=== PATIENT | male | born 1975 | race Caucasian/White ===

== ENCOUNTER 2017-03-24 18:01 | Emergency (ER) ==
[2017-03-24 18:18] VITALS: BP 114/70; TEMP 97.9; BMI 17.9
--- NOTE | 2017-03-24 18:29 | ED.PDOC ---
General ED Provider: Dr. MANDO JONES JR Chief Complaint: Shoulder Pain/Injury Stated Complaint: TWO WEEKS AGO AWOKE RIGHT SHOULDER HURTING. NOT RECALL TIME OF INJURY STATES PAIN HAS WORSENED OVER TIME. CAN LIFT ARM ABOVE HEAD, DIFFICULTY BRINGING ARM DOWN SHOULDER JOINT TENDER 97.9 68 15 97% 114/70 8/10 Time Seen by Physician: 18:27 Mode of Arrival: Walk-In Information Source: Patient Exam Limitations: No limitations Nursing and Triage Documentation Reviewed and Agree: No Review of Systems - Review Of Systems Constitutional: Reports: No symptoms Eyes: Reports: No symptoms Ears, Nose, Mouth, Throat: Reports: No symptoms Respiratory: Reports: No symptoms Cardiac: Reports: No symptoms GI: Reports: No symptoms : Reports: No symptoms Musculoskeletal: Reports: Muscle pain Skin: Reports: No symptoms Neurological: Reports: No symptoms Endocrine: Reports: No symptoms Hematologic/Lymphatic: Reports: No symptoms All Other Systems: Other Past Medical History - Past Medical History Previously Healthy: Yes Endocrine: Reports: None Cardiovascular: Reports: None Respiratory: Reports: None Hematological: Reports: None Gastrointestinal: Reports: None Genitourinary: Reports: Kidney stones ([employer] KIDNEY STONE 2011) Neuro/Psych: Reports: None Musculoskeletal: Reports: None Cancer: Reports: None - Surgical History General Surgical History: Reports: Hernia Repair (HERNIA REPAIR AT AGE 12), Other (REATTACHMENT OF THUMB 2007) - Family History Family History: Reports: Unknown - Social History Smoking Status: Current every day smoker, Heavy tobacco smoker Hx Substance Use: No Alcohol Screening: Occasionally - Immunizations Tetanus Shot up to Date: No Physical Exam - Physical Exam Appearance: Well-appearing, Thin Musculoskeletal: Normal strength, ROM intact, No edema, No calf tenderness ( tender at middle of deltoid origin- deltoid heart shaperd-symmetric no left sided tenderness) Skin: Warm, Dry, Normal color Neurological: Sensation intact, Motor intact, Reflexes intact, Cranial nerves intact, Alert, Oriented Psychiatric: Affect appropriate, Mood appropriate Interpretation - Radiology Interpretation Radiology Interpretation By: ED Physician Radiology Results: Negative Exam Interpreted: Other (negative shoulder) Critical Care Note - Critical Care Note Total Time (mins): 0 Course - Course Orders, Labs, Meds: Orders Category Date Time Status SHOULDER, RIGHT MIN 2V Stat RADS 03/24/17 18:28 Taken Vital Signs: Temp Pulse Resp BP Pulse Ox 03/24/17 18:03 97.9 F 68 15 114/70 97 Departure - Departure Time of Disposition: 19:03 Disposition: HOME SELF-CARE Discharge Problem: Injury of shoulder region Instructions: Shoulder Sprain (ED) Condition: Good Pt referred to PMD for follow-up: Yes Additional Instructions: Tylenol or Naprosyn for pain may take Tylenol and Naprosyn together do not take Naprosyn with NSAIDS ICE 20 minutes three times a day for swelling limit lifting to 30 pounds for three days recheck PMD one week consider orthopedic referral for shoulder symptoms Prescriptions: Naproxen [Naprosyn] 500 mg PO Q12HR PRN #30 tablet PRN Reason: PAIN Allergies/Adverse Reactions: Allergies No Known Allergies Allergy (Unverified 03/24/17 18:09) Home Medications: Ambulatory Orders Naproxen [Naprosyn] 500 mg PO Q12HR PRN #30 tablet 03/24/17
--- NOTE | 2017-03-25 07:25 | DI ---
Exam: Three x-rays of the right shoulder. Comparison: None available. Reason for exam: Pain in mid deltoid region. FINDINGS: No acute fracture or malalignment. The humeral head articulates to the bony glenoid. Th e acromioclavicular joint spaces well maintained. The clavicle is intact. Impression: No acute fracture or dislocation in the right shoulder
== END 2017-03-24 19:17 | disposition home or self-care (01) ==
LOC: ED 18:01
DX: M25.511 Pain in right shoulder (principal); F17.210 Nicotine dependence, cigarettes, uncomplicated
CPT/HCPCS: 99282

== ENCOUNTER 2017-04-01 14:58 | Outpatient (CLI) ==
--- NOTE | 2017-04-01 17:23 | MRI ---
EXAM: MRI of the right shoulder without contrast COMPARISON: Right shoulder radiographs 03/24/2017. HISTORY: Right shoulder pain. No known injury. TECHNIQUE: Multiplanar noncontrast MR images of the right shoulder were acquired using a 1.2 Dory magnet. The submitted images are mildly limited by patient motion artifact. FINDINGS: There is mild supraspinatus and subscapularis with minimal infraspinatus tendinosis. No evidence of a partial or full-thickness rotator cuff tear. No significant fluid in the subacromial/ subdeltoid bursa. Limited assessment of the glenoid labrum on this non arthrographic study. The glenoid labrum is jose ssly unremarkable. No paralabral cyst. The glenohumeral joint space is preserved without evidence of an acute fracture dislocation. Physiologic amount of fluid within the joint. The long head of the biceps is located within the bicipital groove with mild tendinosis. Mild hypertrophic degenerative changes of the acromioclavicular joint with capsular hypertrophy. Sm all marginal osteophytes. Minimal lateral downsloping of the acromion. No evidence of an os acromi cynthia or abnormal widening of the acromioclavicular joint space. No soft tissue mass identified. IMPRESSION: 1. Mild rotator cuff tendinosis without evidence of a partial or full-thickness rotator cuff tear. 2. Mild hypertrophic degenerative changes of the acromioclavicular joint with mild lateral downslop ing of the acromion representing potential sources of subacromial impingement. 3. No acute osseous abnormality. 4. Mild long head biceps tendinosis.
== END 2017-04-01 14:59 | disposition home or self-care (01) ==
LOC: RAD 14:58
PROVIDERS: ATTEND Emergency Medicine
DX: M25.511 Pain in right shoulder (principal)

== ENCOUNTER 2017-05-26 12:01 | Emergency (ER) ==
[2017-05-26 12:10] VITALS: BP 125/80; TEMP 96.9; BMI 18.6
--- NOTE | 2017-05-26 12:20 | ED.PDOC ---
General ED Provider: Dr. VIRAL CARPENTER Chief Complaint: Back Pain Stated Complaint: back pain Time Seen by Physician: 12:10 (chronic pain no injury) Mode of Arrival: Walk-In Information Source: Patient Exam Limitations: No limitations [facility] Nursing and Triage Documentation Reviewed and Agree: Yes (seen at all times with yolanda ) Musculoskeletal Complaint Exam - Back Pain Complaint/Exam Mechanism of Injury: Reports: No known trauma Onset/Duration: chronic Timing: Intermittent Episodes Lasting: Weeks Initial Severity: Moderate Current Severity: Mild Character: Reports: Aching Aggravating: Reports: Movements, Lifting, Bending, Walking Alleviating: Reports: Rest, Position Associated Signs and Symptoms: Denies: Swelling, Redness, Bruising, Fever, Weakness, Numbness, Tingling, Abdominal pain, Flank pain, Bladder incontinence, Bowel incontinence, Weight loss, Pain with weight bearing Related History: Reports: Similar episode TAD Risk Factors: Reports: None AAA Risk Factors: Reports: None Cauda Equina Risk Factors: Reports: None Epidural Abcess Risk Factors: Reports: None Related Surgical History: Reports: None Focal Tenderness: No Paraspinal Muscle Tenderness: No Paraspinal Muscle Spasm: No Scoliosis: No Lordosis: No Kyphosis: No SLR Test: Right Negative, Left Negative Hip Motion Testing Pain: Right Negative, Left Negative Focal Weakness: Present: None Focal Sensory Loss: Present: None Gait: Present: Normal Differential Diagnoses: Strain, Sprain Review of Systems - Review Of Systems Constitutional: Reports: No symptoms Eyes: Reports: No symptoms Ears, Nose, Mouth, Throat: Reports: No symptoms Respiratory: Reports: No symptoms Cardiac: Reports: No symptoms GI: Reports: No symptoms : Reports: No symptoms Musculoskeletal: Reports: Back pain Skin: Reports: No symptoms Neurological: Reports: No symptoms Endocrine: Reports: No symptoms Hematologic/Lymphatic: Reports: No symptoms All Other Systems: Reviewed and Negative Past Medical History - Past Medical History Previously Healthy: Yes Endocrine: Reports: None Cardiovascular: Reports: None Respiratory: Reports: None Hematological: Reports: None Gastrointestinal: Reports: None Genitourinary: Reports: Kidney stones ([employer] KIDNEY STONE 2011) Neuro/Psych: Reports: None Musculoskeletal: Reports: None Cancer: Reports: None - Surgical History General Surgical History: Reports: Hernia Repair (HERNIA REPAIR AT AGE 12), Other (REATTACHMENT OF THUMB 2007) - Family History Family History: Reports: Unknown - Social History Smoking Status: Current every day smoker, Heavy tobacco smoker Hx Substance Use: No Alcohol Screening: Occasionally Physical Exam - Physical Exam Appearance: Well-appearing, No pain distress, Well-nourished Eyes: PRINCESS, EOMI, Conjunctiva clear ENT: Ears normal, Nose normal, Oropharynx normal Respiratory: Airway patent, Breath sounds clear, Breath sounds equal, Respirations nonlabored Cardiovascular: RRR, Pulses normal, No rub, No murmur GI/: Soft, Nontender, No masses, Bowel sounds normal, No Organomegaly Musculoskeletal: Normal strength, ROM intact, No edema, No calf tenderness Skin: Warm, Dry, Normal color Neurological: Sensation intact, Motor intact, Reflexes intact, Cranial nerves intact, Alert, Oriented Psychiatric: Affect appropriate, Mood appropriate Critical Care Note - Critical Care Note Total Time (mins): 0 Course - Course Vital Signs: Temp Pulse Resp BP Pulse Ox 05/26/17 12:06 96.9 F L 56 L 20 125/80 99 Departure - Departure Time of Disposition: 12:20 (both nurse named were present during entire visit ) Disposition: HOME SELF-CARE Discharge Problem: Low back pain Qualifiers: Chronicity: unspecified Back pain laterality: unspecified Sciatica presence: without sciatica Qualified Code(s): M54.5 - Low back pain Instructions: Acute Low Back Pain (ED) Condition: Good Pt referred to PMD for follow-up: Yes Additional Instructions: Please call your Family Physician as soon as possible to schedule a follow-up appointment. Prescriptions: Nabumetone [Relafen] 750 mg PO BIDWM 4 Days #8 tablet Allergies/Adverse Reactions: Allergies No Known Allergies Allergy (Verified 05/26/17 12:10) Home Medications: Ambulatory Orders Nabumetone [Relafen] 750 mg PO BIDWM 4 Days #8 tablet 05/26/17
== END 2017-05-26 12:29 | disposition home or self-care (01) ==
LOC: ED 12:01
DX: M54.5 Low back pain (principal); G89.29 Other chronic pain; F17.210 Nicotine dependence, cigarettes, uncomplicated
CPT/HCPCS: 99283

== ENCOUNTER 2017-12-08 17:03 | Emergency (ER) ==
[2017-12-08 17:06] VITALS: BP 123/82; TEMP 98.4; BMI 20.5
--- NOTE | 2017-12-08 18:36 | ED.PDOC ---
General ED Provider: Dr. KRISTINE MERLOS-ER Chief Complaint: Shoulder Pain/Injury Stated Complaint: something popped in my shoulder a few days ago at work when i pulled on a cart Time Seen by Physician: 18:34 Mode of Arrival: Walk-In Information Source: Patient Exam Limitations: No limitations Nursing and Triage Documentation Reviewed and Agree: Yes Reviewed sepsis parameters & appropriate labs ordered?: Yes System Inflammatory Response Syndrome: Not Applicable Sepsis Protocol: For patient's 13 years and over: Temp is 96.8 and below OR 101 and greater Pulse >90 BPM Resp >20/minute Acutely Altered Mental Status Are patient's symptoms suggestive of a new infection, such as: -Pneumonia -Skin, Soft Tissue -Endocarditis -UTI -Bone, Joint Infection -Implantable Device -Acute Abdominal Infection -Wound Infection -Meningitis -Blood Stream Catheter Infection -Unknown Musculoskeletal Complaint Exam - Shoulder Pain Complaint/Exam Mechanism of Injury: Reports: Trauma Onset/Duration: several days ago Symptoms Are: Still present Timing: Constant Initial Severity: Mild Current Severity: Moderate Location: Reports: Discrete Character: Reports: Dull, Aching, Throbbing, Spasmodic Alleviating: Reports: None Aggravating: Reports: Movement, Lifting, Flexion, Extension, Internal rotation, External rotation, Abduction Associated Signs and Symptoms: Denies: Swelling, Redness, Bruising, Fever, Weakness, Numbness, Tingling Limited Range of Motion: Present: Rotator cuff muscles Differential Diagnoses: Rotator Cuff Injury, Sprain, Strain Review of Systems - Review Of Systems Constitutional: Reports: No symptoms Eyes: Reports: No symptoms Ears, Nose, Mouth, Throat: Reports: No symptoms Respiratory: Reports: No symptoms Cardiac: Reports: No symptoms GI: Reports: No symptoms : Reports: No symptoms Musculoskeletal: Reports: Joint pain, Muscle pain Skin: Reports: No symptoms Neurological: Reports: No symptoms Endocrine: Reports: No symptoms Hematologic/Lymphatic: Reports: No symptoms All Other Systems: Reviewed and Negative Past Medical History - Past Medical History Previously Healthy: Yes Endocrine: Reports: None Cardiovascular: Reports: None Respiratory: Reports: None Hematological: Reports: None Gastrointestinal: Reports: None Genitourinary: Reports: Kidney stones ([employer] KIDNEY STONE 2011) Neuro/Psych: Reports: None Musculoskeletal: Reports: None Cancer: Reports: None - Surgical History General Surgical History: Reports: Hernia Repair (HERNIA REPAIR AT AGE 12), Other (REATTACHMENT OF THUMB 2007) - Family History Family History: Reports: Unknown - Social History Smoking Status: Current every day smoker, Heavy tobacco smoker Hx Substance Use: No Alcohol Screening: Occasionally - Immunizations Tetanus Shot up to Date: No Physical Exam - Physical Exam Appearance: Well-appearing, No pain distress, Well-nourished Pain Distress: Moderate Eyes: PRINCESS, EOMI, Conjunctiva clear ENT: Ears normal, Nose normal, Oropharynx normal Neck: Supple Respiratory: Airway patent Cardiovascular: RRR, Pulses normal, No rub, No murmur GI/: Soft Musculoskeletal: Limited ROM Skin: Warm Neurological: Sensation intact Psychiatric: Affect appropriate, Mood appropriate Interpretation - Radiology Interpretation Radiology Interpretation By: ED Physician Radiology Results: Negative Critical Care Note - Critical Care Note Total Time (mins): 0 Course - Course Orders, Labs, Meds: Orders Category Date Time Status SHOULDER, RIGHT MIN 2V Stat RADS 12/08/17 18:30 Ordered Vital Signs: Temp Pulse Resp BP Pulse Ox 12/08/17 17:03 98.4 F 77 18 123/82 98 Departure - Departure Time of Disposition: 18:39 Disposition: HOME SELF-CARE Discharge Problem: Injury of shoulder region Instructions: Rotator Cuff Injury (ED) Condition: Good Pt referred to PMD for follow-up: Yes IPMP verified?: No Additional Instructions: norco 5mg q 4hrs prn pain #12--f/u wtih pcp Allergies/Adverse Reactions: Allergies No Known Allergies Allergy (Verified 12/08/17 17:07) Home Medications: Ambulatory Orders 1 [No Reported Medications] 12/08/17 Disposition Discussed With: Patient
--- NOTE | 2017-12-09 07:20 | DI ---
EXAM: Three views of the right shoulder HISTORY: Right shoulder injury. COMPARISON: Right shoulder x-rays 03/24/2017 FINDINGS: There is no cortical irregularity or displaced fracture of the right shoulder. The glenohu meral joint is normal. The acromioclavicular joint demonstrates minimal degenerative change. The ad jacent soft tissues and osseous structures are normal. IMPRESSION: No acute abnormality or displaced fracture of the right shoulder.
== END 2017-12-08 18:45 | disposition home or self-care (01) ==
LOC: ED 17:03
DX: S46.001A Unspecified injury of muscle(s) and tendon(s) of the rotator cuff of right shoulder, initial encounter (principal); X50.9XXA Other and unspecified overexertion or strenuous movements or postures, initial encounter; Y99.0 Civilian activity done for income or pay; F17.210 Nicotine dependence, cigarettes, uncomplicated
CPT/HCPCS: 99282